=== PATIENT | female | born 1985 | race American Indian/Alaskan Native ===

== ENCOUNTER 2018-01-12 08:01 | Inpatient (IN) | payer OTHER, MEDICAID ==
[2018-01-12] MEDS: LACTATED RINGERS 1,000 ML IV SCH ×2 (11:11→22:32)
[2018-01-12 11:12] LABS: Hematocrit 34.7 % (30.3-42.9); Hemoglobin 12.3 gm/dl (10.1-14.3); Mean Corpuscular HGB Conc 35 % (30-34); Mean Corpuscular Hemoglobin 33 pg (28-32); Mean Corpuscular Volume 92 fl (79-97); Platelet Count 176 K/mm3 (140-440); Red Blood Count 3.76 M/mm3 (3.65-5.03); Red Cell Distribution Width 13.4 % (13.2-15.2)
[2018-01-12] MEDS ORDERED: ZITHROMAX 1,000 MG in NACL 0.9% 250ML 250 ML IV ONE (11:30)
[2018-01-12] MEDS ORDERED: MINERAL OIL PO PRN (12:52)
[2018-01-12] MEDS ORDERED: BRETHINE SUB-Q PRN (12:52)
[2018-01-12] MEDS ORDERED: SUBLIMAZE IV PRN (12:52)
[2018-01-12] MEDS ORDERED: XYLOCAINE 2% INFILTRATI ONE (12:52)
[2018-01-12] MEDS ORDERED: BRETHINE IVP PRN (12:52)
--- NOTE | 2018-01-12 12:59 | History and Physical Report ---
History of Present Illness Date of examination: 01/12/18 Date of admission: 01/12/18 11:09 Chief complaint: Contractions History of present illness: 32yo G 5 P 1 1 2 2 at 37 weeks 3 days here with c/o painful ctxs q7mins since this AM. Reports positive FMs but denies vaginal bleeding or loss of fluid. Initial SVE 2.5/50/-3 per RN. After 1 hr of ambulation, SVE 4.5/60/-2, per RN. She is a [employer] patient. care co-managed with [facility] secondary to h/o delivery. Her course was complicated by anemia (on iron therapy and vitamin D deficient (supplementation given. She has a h/o genital herpes. Denies prodromal sxs or any recent outbreaks; was started on suppressive therapy 01/08/18. Review of cultures done 01/08/18 indicates positive chlamydia, untreated. GBS is negative. Past History Past Medical History: no pertinent history Past Surgical History: no surgical history [employer] History: abnormal PAP smear (LSIL, neg HPV), chlamydia, herpes Family/Genetic History: hypertension, other (alzheimer's disease) - Obstetrical History Expected Date of Delivery: 01/30/18 Actual Gestation: 37 Week(s) 3 Day(s) : 5 Para: 2 Hx # Term Pregnancies: 1 Number of Pregnancies: 1 Spontaneous Abortions: 0 Induced : 0 Number of Living Children: 2 #1 Gender: Female year: 2,002 (06/21/2003) Birthweight: 2.495 kg (5 lbs 8 oz) Method of Delivery: Vaginal Gestational age at delivery: 36 Complications: none #2 Infant Gender: Male year: 2,[birth year] (08/03/2011) Birthweight: 3.756 kg (8 lbs 4.5 oz) Method of Delivery: Vaginal Gestational age at delivery: 40 Complications: none Medications and Allergies Allergies Allergy/AdvReac Type Severity Reaction Status Date / Time No Known Allergies Allergy Verified 09/21/13 21:14 Home Medications Medication Instructions Recorded Confirmed Last Taken Type Cholecalciferol (Vitamin D3) 2,000 unit PO QDAY 01/12/18 01/12/18 01/11/18 History [Vitamin D3 2,000 unit] Ferrous Sulfate [Feosol] 325 mg PO QDAY 01/12/18 01/12/18 01/11/18 History Vitamins Tablet 1 tab PO DAILY 01/12/18 01/12/18 01/11/18 History Valacyclovir HCl [Valtrex] 500 mg PO DAILY 01/12/18 01/12/18 Unknown History Active Meds: Active Medications Ephedrine Sulfate (Ephedrine Sulfate) 10 mg IV Q2M PRN PRN Reason: Hypotension Fentanyl (Sublimaze) 100 mcg IV Q2H PRN PRN Reason: Labor Pain Lactated Ringer's (Lactated Ringers) 1,000 mls @ 125 mls/hr IV DIRECT ALFREDO Last Admin: 01/12/18 11:11 Dose: 125 mls/hr Oxytocin/Sodium Chloride (Pitocin/Ns 20 Unit/1000ml Drip) 20 units in 1,000 mls @ 125 mls/hr IV DIRECT ALFREDO Lidocaine (Xylocaine 2%) 20 ml INFILTRATI ONCE ONE Stop: 01/12/18 12:53 Mineral Oil (Mineral Oil) 30 ml PO QHS PRN PRN Reason: Constipation Terbutaline Sulfate (Brethine) 0.25 mg SUB-Q ONCE PRN PRN Reason: Hyperstimulation/Hypertonicity Terbutaline Sulfate (Brethine) 0.25 mg IVP ONCE PRN PRN Reason: Hyperstimulation/Hypertonicity Review of Systems All systems: negative - Vital Signs Vital signs: Vital Signs Pulse BP 114 H 110/58 01/12/18 08:36 01/12/18 08:36 Temp Pulse Resp BP Pulse Ox 98.3 F 126 H 18 101/57 94 01/12/18 09:00 01/12/18 13:02 01/12/18 09:00 01/12/18 12:49 01/12/18 13:02 - Obstetrical FHR: auscultation normal, category 1 FHR comments: baseline 145, moderate variability, 15x15 accels, no decels Uterine Contraction Monitor Mode: External Cervical Dilatation: 4.5 (per RN) Cervical Effacement Percentage: 60 (per RN) station: -2 (per RN) Uterine Contraction Pattern: Irregular Results Result Diagrams: 01/12/18 10:35 Abnormal lab results 01/12/18 Range/Units 10:35 MCH 33 H (28-32) pg MCHC 35 H (30-34) % All other labs normal. Assessment and Plan - Patient Problems (1) 37 weeks gestation of Current Visit: Yes Status: Acute (2) Active labor at term Current Visit: Yes Status: Acute Plan to address problem: Admit to L&D with routine labor order Discussed plan of care with Dr. Da Silva Augmentation with Oxytocin, as indicated Anticipate vaginal delivery (3) Chlamydia infection affecting in third trimester Current Visit: Yes Status: Acute Plan to address problem: Treated with Azithromycin 1gm IV x1 Patient's partner advised to seek medical attention
[2018-01-12] MEDS ORDERED: PITOCin/NS 20 UNIT/1000ML DRIP 20 UNITS/1,000 ML BAG IV SCH (13:00)
[2018-01-12] MEDS ORDERED: PITOCin/NS 30 UNIT/500ML 30 UNITS/500 ML BAG IV SCH (20:00)
--- NOTE | 2018-01-13 03:48 | Procedure Note ---
OB Delivery Note - Delivery Date of Delivery: 01/13/18 (@ 0323) Surgeon: AKI MCCOY Estimated blood loss: 200cc - Vaginal Delivery presentation: vertex Delivery position: OA Intrapartum events: meconium (terminal) Delivery induction: none Delivery augmentation: pitocin Delivery monitor: external FHT, external uterine Route of delivery: Delivery placenta: spontaneous Delivery cord: 3 umbilical vessels Episiotomy: none Delivery laceration: none Delivery comments: Called to room for imminent delivery. Baby's head "out" when I entered. Spont vag del of live male inf over intact perineum @ 0323. Baby evaluated by NICU. 8/8. Spont del of intact placenta with 3 vessels @ 0330. Pitocin to IVF per RN. Fundus firm. Bleeding wnl. No lacerations. EBL 200. initiated in L&D. Weight 2985 gms (6-9.2 oz). Mother and baby in stable condition. Provider "on the way". - Infant A at 1 minute: 8 at 5 minutes: 8 Infant Gender: Male (weight 2985 gms (6-9.2 oz).)
[2018-01-13] MEDS ORDERED: PHENERGAN PO PRN (04:48)
[2018-01-13] MEDS ORDERED: LANSINOH TP PRN (04:48)
[2018-01-13] MEDS ORDERED: TUCKS PAD TP PRN (04:48)
[2018-01-13] MEDS ORDERED: ZOFRAN IV PRN (04:48)
[2018-01-13] MEDS ORDERED: DULCOLAX PR PRN (04:48)
[2018-01-13] MEDS ORDERED: BENADRYL PO PRN (04:48)
[2018-01-13] MEDS ORDERED: PHENERGAN PR PRN (04:48)
[2018-01-13] MEDS ORDERED: TYLENOL PO PRN (04:48)
[2018-01-13] MEDS ORDERED: NORCO 5/325 PO PRN (04:48)
[2018-01-13] MEDS ORDERED: MILK OF MAGNESIA PO PRN (04:48)
[2018-01-13] MEDS ORDERED: SODIUM CHLORIDE FLUSH SYRINGE 10 ML IV NR (05:00)
[2018-01-13] MEDS: MOTRIN PO SCH ×4 (05:13→23:10)
[2018-01-13] MEDS: PRENATAL VITAMIN PO SCH (09:34)
[2018-01-13] MEDS: FEOSOL PO SCH (09:34)
[2018-01-13 19:46] LABS: Hematocrit 32.1 % (30.3-42.9)
[2018-01-14] MEDS: MOTRIN PO SCH ×3 (05:51→23:19)
--- NOTE | 2018-01-14 10:50 | Progress Note ---
Assessment and Plan A: PP Day #1 Stable P: Follow Routine Orders Depo Provera prior to discharge D/C Home in the AM RTO in 6 weeks for PP Exam RTO in 1 Week for Infant circumcision Subjective - Subjective Date of service: 01/14/18 Patient reports: appetite normal, voiding normally, pain well controlled, flatus , bowel movement, ambulating normally Isabela: doing well Objective - Vital Signs Latest vital signs: Vital Signs Temp Pulse Resp BP BP Pulse Ox 01/14/18 07:50 98 F 77 20 109/52 01/14/18 00:00 98.4 F 68 113/62 01/13/18 15:29 63 140/75 99 01/13/18 15:22 74 98 01/13/18 11:24 98.6 F 92 H 20 107/55 98 Intake and Output 01/13/18 01/14/18 01/14/18 22:59 06:59 14:59 Intake Total 240 240 Output Total 5 Balance 235 240 Intake: Oral 240 240 Output: Urine 5 Void 5 Other: Total, Intake Amount 240 240 Total, Output Amount 5 # Voids Void 1 1 1 - Exam Breasts: Present: normal Cardiovascular: Present: Regular rate Lungs: Present: Clear to auscultation, Normal air movement Abdomen: Present: normal appearance, soft, normal bowel sounds Uterus: Present: normal, firm, fundal height below umbilicus Extremities: Present: normal
--- NOTE | 2018-01-14 10:52 | Discharge Summary ---
Providers - Providers Date of Admission: 01/12/18 11:09 Date of discharge: 01/15/18 Attending physician: RD SUÁREZ MD Primary care physician: RD SUÁREZ MD Hospitalization Reason for admission: active labor Delivery: Episiotomy: none Laceration: none Other procedures: none complications: none Discharge diagnosis: IUP at term delivered [place] baby: male Condition at discharge: Good Disposition: DC-01 TO HOME OR SELFCARE Plan - Provider Discharge Summary Activity: routine, no sex for 6 weeks, no heavy lifting 4 weeks, no strenuous exercise Diet: routine Instructions: routine Additional instructions: [] Smoking cessation referral if applicable(refer to patient education folder for contact #) [] Refer to [facility]'s [facility] Booklet Call your doctor immediately for: * Fever > 100.5 * Heavy vaginal bleeding ( >1 pad per hour) * Severe persistent headache * Shortness of breath * Reddened, hot, painful area to leg or breast * Drainage or odor from incision. * Keep incision clean and dry at all times and follow doctor's instructions regarding bathing/showering - Follow up plan Follow up: RD SUÁREZ MD [Primary Care Provider] - 6 Weeks
[2018-01-14] MEDS ORDERED: DEPO-PROVERA (CONTRACEPTION) IM NR (11:00)
[2018-01-14] MEDS: PRENATAL VITAMIN PO SCH (18:20)
[2018-01-14] MEDS: FEOSOL PO SCH (18:20)
[2018-01-15] MEDS: MOTRIN PO SCH (05:57)
[2018-01-15] MEDS: FEOSOL PO SCH (09:20)
[2018-01-15] MEDS: PRENATAL VITAMIN PO SCH (09:20)
[2018-01-15 09:33] VITALS: BP 111/55
[2018-01-15] MEDS ORDERED: DEPO-PROVERA (CONTRACEPTION) IM NR (12:17)
== END 2018-01-15 13:00 | disposition home or self-care (01) | DRG 774 ==
LOC: TRG 08:01 → LD 11:09 → OB 01-13 05:32
PROVIDERS: ADMIT Obstetrics & Gynecology; ATTEND Obstetrics & Gynecology
PROC: 10E0XZZ Delivery of Products of Conception, External Approach (ICD-10-PCS; principal; 2018-01-13)
DX: O98.82 Other maternal infectious and parasitic diseases complicating childbirth (principal); O77.0 Labor and delivery complicated by meconium in amniotic fluid; Z3A.37 37 weeks gestation of pregnancy; Z37.0 Single live birth; Z82.49 Family history of ischemic heart disease and other diseases of the circulatory system; Z79.899 Other long term (current) drug therapy; O99.02 Anemia complicating childbirth; D64.9 Anemia, unspecified; O98.52 Other viral diseases complicating childbirth; B00.9 Herpesviral infection, unspecified
CPT/HCPCS: 36415; 85014; 85018; 85027; 86592; 86850; 86900; 86901; 99211; G0463; J0456; J1050; J2590; J7050; J7120